=== PATIENT | female | born 1960 | race Caucasian/White ===

== ENCOUNTER → 2017-12-18 | Outpatient (REF) | payer BC ==
[2017-12-18 14:10] LABS: INR 0.86; PROTHROMBIN TIME 11.8 SECONDS (12.4-14.5)
[2017-12-18 14:11] LABS: PARTIAL THROMBOPLASTIN TIME 28.3 SECONDS (26.8-37.9)
[2017-12-18 14:30] LABS: COMPLEMENT C3 117 MG/DL (90-180)
[2017-12-18 14:36] LABS: TOTAL PROTEIN,RANDOM URINE 1456.9 MG/DL (0.0-12.0); URINE TOTAL PROTEIN 1456.9 MG/DL (0-12)
[2017-12-18 14:38] LABS: HEPATITIS B SURFACE ANTIGEN NEGATIVE (NEGATIVE)
[2017-12-19 13:52] LABS: URINE VOLUME RANDOM ML
[2017-12-19 13:53] LABS: UPEP INTERPRETATION NO M-SPIKE NOTED
[2017-12-21 00:06] LABS: ANCA-ATYPICAL <1:20 titer (Neg:<1:20); ANTI-GLOMERULAR BASEMENT MEMB 3 units (0-20); ANTINUCLEAR ANTIBODIES DIRECT Negative (Negative); CYTOPLASMIC NEUTROP AB ANCA-C <1:20 titer (Neg:<1:20); PERINUCLEAR AB ANCA-P <1:20 titer (Neg:<1:20)
== END ==
LOC: M LAB REF 13:09
DX: R31.9 Hematuria, unspecified (principal); N04.9 Nephrotic syndrome with unspecified morphologic changes
CPT/HCPCS: 87340

== ENCOUNTER → 2018-01-02 | Outpatient (CLI) | payer BC ==
[~2018-01-02] MED LIST: LIDOCAINE 1% MDV 20ML VIAL As Ordered
== END ==
LOC: M RADPRO 10:36
DX: N04.9 Nephrotic syndrome with unspecified morphologic changes (principal); Z88.8 Allergy status to other drugs, medicaments and biological substances; Z88.2 Allergy status to sulfonamides; Z79.899 Other long term (current) drug therapy
CPT/HCPCS: 50200

== ENCOUNTER → 2018-01-08 | Outpatient (CLI) | payer BC ==
[2018-01-10 00:07] LABS: FREE KAPPA LIGHT CHAINS SERUM 14.5 mg/L (3.3-19.4); FREE LAMBDA LIGHT CHAINS SERUM 170.2 mg/L (5.7-26.3); KAPPA/LAMBDA RATIO SERUM 0.09 (0.26-1.65)
== END ==
LOC: M LAB 08:35
DX: E85.9 Amyloidosis, unspecified (principal)
CPT/HCPCS: 36415

== ENCOUNTER → 2018-01-09 | Outpatient (REF) | payer BC ==
[2018-01-09 10:38] LABS: TOTAL VOLUME, URINE 2700 ML
[2018-01-09 10:49] LABS: TOTAL PROTEIN 24 HOUR URINE 7157.7 MG/24HR (50-150); TOTAL PROTEIN,RANDOM URINE 265.1 MG/DL (0.0-12.0); URINE TOTAL PROTEIN 265.1 MG/DL (0-12)
[2018-01-09 11:49] LABS: URINE TOTAL PROTEIN 265.1 MG/DL (0-12); URINE VOLUME 2700 ML
[2018-01-09 13:54] LABS: UPEP INTERPRETATION NO M-SPIKE NOTED
== END ==
LOC: M LAB REF 09:33
DX: E85.9 Amyloidosis, unspecified (principal)
CPT/HCPCS: 81050

== ENCOUNTER → 2018-02-06 | Outpatient (CLI) | payer BC | LOC: M WHC 14:23 | DX: Z12.31 Encounter for screening mammogram for malignant neoplasm of breast (principal) | CPT/HCPCS: 77067 ==

== ENCOUNTER → 2018-02-26 | Outpatient (CLI) | payer BC | LOC: M CARPUL 17:23 | DX: Z52.011 Autologous donor, stem cells (principal) | CPT/HCPCS: 94010 ==

== ENCOUNTER → 2019-03-02 | Outpatient (CLI) | payer BC ==
--- NOTE | 2019-03-02 13:17 | REPMRS ---
Patient History The patient states she had a clinical breast exam in 02/2019. Patient is postmenopausal, has history of other cancer at age 57, had previous chemotherapy at age 57, and had first child at age 31. No known family history of cancer. Took hormonal contraceptives for 2 years. Taking estrogen for 13 years 1 month. Took unspecified hormones for 9 years. Digital Woman Screen Mammo: March 02, 2019 - Exam #: [id number] Bilateral CC and MLO view(s) were taken. Technologist: Bernice Becker Technologist Prior study comparison: February 06, 2018, digital woman screen mammo performed at [facility]. February 04, 2017, digital woman screen mammo performed at [facility]. January 27, 2016, digital woman screen mammo performed at [email or web address]. FINDINGS: The breast tissue is heterogeneously dense. This may lower the sensitivity of mammography. There is a moderate amount of heterogeneously dense fibroglandular tissue which is fairly symmetric. There is no interval development of dominant mass, architectural distortion, or clustered microcalcification typical of malignancy. There has been no change in the appearance of the mammogram from the prior studies. 3-D tomosynthesis shows no additional findings. Assessment: BI-RADS/ACR category 1 mammogram. Negative Mammogram. Recommendation Routine screening mammogram of both breasts in 1 year (for women over age 40). This patient's Lifetime Breast Cancer RIsk is estimated at 9.0 %. This mammogram was interpreted with the aid of an FDA-approved computer-aided dectection system. Electronically Signed By: Roney Montoya MD 03/02/19 [id number]
== END ==
LOC: M WHC 10:29
PROVIDERS: ATTEND Nurse Practitioner Family
DX: Z12.31 Encounter for screening mammogram for malignant neoplasm of breast (principal); Z78.0 Asymptomatic menopausal state; Z79.890 Hormone replacement therapy

== ENCOUNTER → 2019-03-02 | Outpatient (REF) | payer BC ==
[2019-03-05 14:14] LABS: HPV HYBRID CAPTURE II Positive (Negative)
== END ==
LOC: M SFHCWAGY 10:58
PROVIDERS: ATTEND Nurse Practitioner Family
DX: Z12.4 Encounter for screening for malignant neoplasm of cervix (principal)
CPT/HCPCS: 87624; G0123

== ENCOUNTER → 2019-11-16 | Outpatient (REF) | payer BC | LOC: M LAB LCGH 09:45 | PROVIDERS: ATTEND Surgery | DX: K21.9 Gastro-esophageal reflux disease without esophagitis (principal); R19.7 Diarrhea, unspecified ==

== ENCOUNTER → 2020-07-07 | Outpatient (REF) | payer BC ==
[2020-07-07 18:42] LABS: PERCENT SATURATION 3.7 % (13.2-45.0)
== END ==
LOC: M LAB REF 17:07
PROVIDERS: ATTEND Internal Medicine Nephrology
DX: D50.9 Iron deficiency anemia, unspecified (principal)

== ENCOUNTER → 2020-10-06 | Outpatient (CLI) | payer BC ==
--- NOTE | 2020-10-06 12:46 | REPMRS ---
Patient History The patient states she had a clinical breast exam in 09/2020. 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 No known family history of cancer. Took hormonal contraceptives for 2 years. Took estrogen for 13 years 7 months. Took unspecified hormones for 9 years. Digital Woman Screen Mammo: October 06, 2020 - Exam #: [id number] Bilateral CC and MLO view(s) were taken. Technologist: Annie Lagos, Technologist Prior study comparison: March 02, 2019, bilateral digital woman screen mammo performed at [facility]. February 06, 2018, digital woman screen mammo performed at [facility]. February 04, 2017, digital woman screen mammo performed at [facility]. FINDINGS: There are scattered fibroglandular densities. The Volpara volumetric breast density category is:B. There has been no change in the appearance of the mammogram from the prior studies. There is a mild amount of scattered fibroglandular density which is fairly symmetric. There is no interval development of dominant mass, architectural distortion, or grouped microcalcification suggestive of malignancy. 3-D tomosynthesis shows no additional findings. Assessment: BI-RADS/ACR category 1 mammogram. Negative Mammogram. Recommendation Routine screening mammogram of both breasts in 1 year (for women over age 40). This patient's [facility] Lifetime Breast Cancer Risk is estimated at 8.4 %. This mammogram was interpreted with the aid of an FDA-approved computer-aided dectection system. Electronically Signed By: Roney Montoya MD 10/06/20 [id number]
== END ==
LOC: M WHC 11:54
PROVIDERS: ATTEND Nurse Practitioner Family
DX: Z12.31 Encounter for screening mammogram for malignant neoplasm of breast (principal); Z85.89 Personal history of malignant neoplasm of other organs and systems; Z92.21 Personal history of antineoplastic chemotherapy; Z92.0 Personal history of contraception

== ENCOUNTER → 2020-10-06 | Outpatient (REF) | payer BC | LOC: M SFHCWAGY 13:50 | PROVIDERS: ATTEND Nurse Practitioner Family | DX: Z12.72 Encounter for screening for malignant neoplasm of vagina (principal); Z01.419 Encounter for gynecological examination (general) (routine) without abnormal findings ==

== ENCOUNTER → 2021-06-05 | Outpatient (REF) | payer BC | LOC: M LAB REF 19:05 | PROVIDERS: ATTEND Physician Assistant | DX: C44.722 Squamous cell carcinoma of skin of right lower limb, including hip (principal) ==

== ENCOUNTER → 2022-01-01 | Outpatient (REF) | payer BC, MEDICARE, OTHER | LOC: M SFHCDERM 17:13 | PROVIDERS: ATTEND Physician Assistant | DX: C44.712 Basal cell carcinoma of skin of right lower limb, including hip (principal); L57.0 Actinic keratosis ==

== ENCOUNTER → 2023-01-30 | Outpatient (REF) | payer MEDICARE, BC, OTHER | LOC: M SFHCDERM 18:06 | PROVIDERS: ATTEND Physician Assistant | DX: C44.629 Squamous cell carcinoma of skin of left upper limb, including shoulder (principal) ==